=== PATIENT | female | born 1950 | race Two or more races ===

== ENCOUNTER → 2017-02-07 | Outpatient (CLI) | payer OTHER ==
[~2017-02-07] MED LIST: ENALAPRIL MALEA10 MG NGT; JANUVIA100 MG PO; MOTRIN800 MG PO; NABUMETONE500 MG PO; PERCOCET 5/3251 TAB PO
== END | disposition home or self-care (01) ==
LOC: LAB 10:55
DX: R05 Cough (principal); R50.9 Fever, unspecified

== ENCOUNTER → 2017-02-07 | Outpatient (CLI) | payer OTHER | END | disposition home or self-care (01) | LOC: RAD 10:58 | DX: R05 Cough (principal) ==

== ENCOUNTER 2017-02-22 07:33 | Outpatient (CLI) | payer OTHER | END 2017-02-22 07:48 | disposition home or self-care (01) | LOC: NUCLEAR 07:33 | DX: K82.9 Disease of gallbladder, unspecified (principal); R10.11 Right upper quadrant pain | CPT/HCPCS: 78227; A9537; J2805 ==

== ENCOUNTER 2017-03-10 08:01 | Outpatient (CLI) | payer OTHER | END 2017-03-10 08:19 | disposition home or self-care (01) | LOC: SONOGRAMA 08:01 → MAMO-SONO 08:45 | DX: K80.20 Calculus of gallbladder without cholecystitis without obstruction (principal) ==

== ENCOUNTER 2017-03-20 10:20 | Outpatient (CLI) | payer OTHER | END 2017-03-20 10:34 | disposition home or self-care (01) | LOC: LAB 10:20 | DX: I10 Essential (primary) hypertension (principal); E78.4 Other hyperlipidemia ==

== ENCOUNTER 2017-05-23 05:35 | Inpatient (IN) | payer OTHER ==
[~2017-05-23 05:35] MED LIST changes: +ASPIR 8181 MG PO
== END 2017-05-27 12:41 | disposition home or self-care (01) | DRG 416 ==
LOC: CIR.AMB 05:35 → O/R 15:31 → SURG 15:57
PROVIDERS: Surgery
PROC: 0FJ44ZZ Inspection of Gallbladder, Percutaneous Endoscopic Approach (ICD-10-PCS; 2017-05-23)
PROC: 0FT40ZZ Resection of Gallbladder, Open Approach (ICD-10-PCS; principal; 2017-05-23 07:00)
DX: K80.10 Calculus of gallbladder with chronic cholecystitis without obstruction (principal); E66.8 Other obesity; I10 Essential (primary) hypertension; E11.9 Type 2 diabetes mellitus without complications; R50.82 Postprocedural fever

== ENCOUNTER → 2017-06-13 | Emergency (ER) | payer OTHER ==
[~2017-06-13] VITALS: Ht 147.3 cm; Wt 100.7 kg
[~2017-06-13] MED LIST changes: +JANUMET 50-1,01 EACH
== END | disposition home or self-care (01) ==
LOC: ER 13:28
DX: T81.4XXA Infection following a procedure, initial encounter (principal); B99.9 Unspecified infectious disease; E11.9 Type 2 diabetes mellitus without complications; E66.8 Other obesity

== ENCOUNTER 2017-07-20 12:19 | Outpatient (CLI) | payer OTHER | END 2017-07-20 12:21 | disposition home or self-care (01) | LOC: LAB 12:19 | DX: I10 Essential (primary) hypertension (principal) ==

== ENCOUNTER → 2017-08-02 | Outpatient (CLI) | payer OTHER | END | disposition home or self-care (01) | LOC: TOM 09:53 | DX: R51 Headache (principal) ==

== ENCOUNTER → 2017-09-04 07:37 | Outpatient (CLI) | payer OTHER | END | disposition home or self-care (01) | LOC: LAB 07:37 | DX: Z76.0 Encounter for issue of repeat prescription (principal); I10 Essential (primary) hypertension; E11.9 Type 2 diabetes mellitus without complications ==

== ENCOUNTER → 2017-09-29 | Outpatient (CLI) | payer OTHER | END | disposition home or self-care (01) | LOC: SONOGRAMA 13:01 | DX: N95.0 Postmenopausal bleeding (principal) ==

== ENCOUNTER → 2017-10-18 10:25 | Outpatient (CLI) | payer OTHER | END | disposition home or self-care (01) | LOC: LAB 10:25 | DX: D50.8 Other iron deficiency anemias (principal); E83.51 Hypocalcemia; Z13.1 Encounter for screening for diabetes mellitus; E78.2 Mixed hyperlipidemia; E03.8 Other specified hypothyroidism; N39.0 Urinary tract infection, site not specified; D68.8 Other specified coagulation defects; Z13.6 Encounter for screening for cardiovascular disorders; N83.209 Unspecified ovarian cyst, unspecified side ==

== ENCOUNTER 2017-11-01 06:47 | Outpatient (CLI) | payer OTHER | END 2017-11-01 06:59 | disposition home or self-care (01) | LOC: LAB 06:47 | DX: I12.9 Hypertensive chronic kidney disease with stage 1 through stage 4 chronic kidney disease, or unspecified chronic kidney disease (principal) ==

== ENCOUNTER 2017-11-01 07:32 | Outpatient (CLI) | payer OTHER | END 2017-11-01 07:47 | disposition home or self-care (01) | LOC: SONOGRAMA 07:32 | DX: N18.1 Chronic kidney disease, stage 1 (principal); I12.9 Hypertensive chronic kidney disease with stage 1 through stage 4 chronic kidney disease, or unspecified chronic kidney disease ==

== ENCOUNTER 2018-01-31 06:41 | Outpatient (CLI) | payer OTHER | END 2018-01-31 07:03 | disposition home or self-care (01) | LOC: LAB 06:41 | DX: E08.00 Diabetes mellitus due to underlying condition with hyperosmolarity without nonketotic hyperglycemic-hyperosmolar coma (NKHHC) (principal); I10 Essential (primary) hypertension ==

== ENCOUNTER 2018-02-09 08:00 | Outpatient (CLI) | payer OTHER | END 2018-02-09 08:26 | disposition home or self-care (01) | LOC: LAB 08:00 | DX: I12.9 Hypertensive chronic kidney disease with stage 1 through stage 4 chronic kidney disease, or unspecified chronic kidney disease (principal); N39.0 Urinary tract infection, site not specified ==

== ENCOUNTER 2018-06-09 08:51 | Outpatient (CLI) | payer OTHER | END 2018-06-09 09:02 | disposition home or self-care (01) | LOC: LAB 08:51 | DX: I20.1 Angina pectoris with documented spasm (principal); I10 Essential (primary) hypertension ==

== ENCOUNTER 2018-06-20 10:12 | Outpatient (CLI) | payer OTHER | END 2018-06-20 17:00 | disposition home or self-care (01) | LOC: MRI 10:12 | DX: M54.5 Low back pain (principal); E11.00 Type 2 diabetes mellitus with hyperosmolarity without nonketotic hyperglycemic-hyperosmolar coma (NKHHC) | CPT/HCPCS: 72148 ==

== ENCOUNTER 2018-07-25 08:02 | Outpatient (CLI) | payer OTHER | END 2018-07-25 08:11 | disposition home or self-care (01) | LOC: LAB 08:02 | DX: N83.201 Unspecified ovarian cyst, right side (principal) ==

== ENCOUNTER 2018-07-25 09:05 | Outpatient (CLI) | payer OTHER | END 2018-07-25 09:22 | disposition home or self-care (01) | LOC: MAMO-SONO 09:05 | DX: N84.0 Polyp of corpus uteri (principal); Z12.31 Encounter for screening mammogram for malignant neoplasm of breast ==

== ENCOUNTER 2018-08-28 08:41 | Outpatient (CLI) | payer OTHER | END 2018-08-28 08:48 | disposition home or self-care (01) | LOC: RAD 08:41 | DX: G89.11 Acute pain due to trauma (principal); R07.89 Other chest pain; T79.9XXA Unspecified early complication of trauma, initial encounter ==

== ENCOUNTER 2018-10-09 09:55 | Outpatient (CLI) | payer OTHER | END 2018-10-09 10:05 | disposition home or self-care (01) | LOC: LAB 09:55 | DX: G89.11 Acute pain due to trauma (principal); I10 Essential (primary) hypertension; E08.9 Diabetes mellitus due to underlying condition without complications ==

== ENCOUNTER 2018-10-10 10:23 | Outpatient (CLI) | payer OTHER | END 2018-10-10 10:31 | disposition home or self-care (01) | LOC: LAB 10:23 | DX: G89.11 Acute pain due to trauma (principal); I10 Essential (primary) hypertension; E08.69 Diabetes mellitus due to underlying condition with other specified complication ==

== ENCOUNTER 2019-03-19 11:05 | Outpatient (CLI) | payer OTHER | END 2019-03-19 11:11 | disposition home or self-care (01) | LOC: TOM 11:05 | DX: M79.622 Pain in left upper arm (principal); M25.512 Pain in left shoulder ==

== ENCOUNTER 2020-09-30 07:29 | Outpatient (CLI) | payer OTHER | END 2020-09-30 13:54 | disposition home or self-care (01) | LOC: TOM 07:29 | PROVIDERS: ATTEND Specialist | DX: R10.84 Generalized abdominal pain (principal); R19.5 Other fecal abnormalities; Z12.31 Encounter for screening mammogram for malignant neoplasm of breast; E08.9 Diabetes mellitus due to underlying condition without complications; N64.59 Other signs and symptoms in breast ==

== ENCOUNTER 2020-11-05 08:33 | Outpatient (CLI) | payer OTHER | END 2020-11-05 08:42 | disposition home or self-care (01) | LOC: SONOGRAMA 08:33 → MAMO-SONO 11-12 07:45 | PROVIDERS: ATTEND Internal Medicine Gastroenterology | DX: K76.0 Fatty (change of) liver, not elsewhere classified (principal); R10.84 Generalized abdominal pain ==

== ENCOUNTER 2021-07-17 10:13 | Emergency (ER) | payer OTHER ==
[~2021-07-17] VITALS: Ht 157.5 cm; Wt 108.0 kg
== END 2021-07-17 15:36 ==
LOC: ER 10:13
DX: U07.1 COVID-19 (principal); D69.6 Thrombocytopenia, unspecified; E11.9 Type 2 diabetes mellitus without complications; I10 Essential (primary) hypertension

== ENCOUNTER 2021-07-20 10:29 | Outpatient (CLI) | payer OTHER | END 2021-07-20 10:30 | disposition home or self-care (01) | LOC: LAB 10:29 | PROVIDERS: ATTEND General Practice | DX: D69.6 Thrombocytopenia, unspecified (principal) ==

== ENCOUNTER 2021-10-05 07:47 | Outpatient (CLI) | payer OTHER | END 2021-10-05 07:58 | disposition home or self-care (01) | LOC: MRI 07:47 | PROVIDERS: ATTEND Specialist | DX: M25.512 Pain in left shoulder (principal) | CPT/HCPCS: 73221 ==

== ENCOUNTER → 2021-12-28 | Outpatient (CLI) | payer OTHER | END | disposition home or self-care (01) | LOC: NUCLEAR 09:21 | PROVIDERS: ATTEND Specialist | DX: I10 Essential (primary) hypertension (principal); E08.9 Diabetes mellitus due to underlying condition without complications; R60.0 Localized edema ==

== ENCOUNTER 2021-12-29 08:57 | Outpatient (CLI) | payer OTHER | END 2021-12-29 08:58 | disposition home or self-care (01) | LOC: NUCLEAR 08:57 | PROVIDERS: ATTEND Specialist | DX: I73.9 Peripheral vascular disease, unspecified (principal); R60.0 Localized edema; E08.9 Diabetes mellitus due to underlying condition without complications; I10 Essential (primary) hypertension ==

== ENCOUNTER → 2022-07-19 07:09 | Outpatient (CLI) | payer OTHER | END | disposition home or self-care (01) | LOC: LAB 07:09 | PROVIDERS: ATTEND Specialist | DX: E08.319 Diabetes mellitus due to underlying condition with unspecified diabetic retinopathy without macular edema (principal); I10 Essential (primary) hypertension; Z12.11 Encounter for screening for malignant neoplasm of colon ==

== ENCOUNTER 2022-07-19 07:54 | Outpatient (CLI) | payer OTHER | END 2022-07-19 08:15 | disposition home or self-care (01) | LOC: MAMO-SONO 07:54 | PROVIDERS: ATTEND Specialist | DX: Z12.31 Encounter for screening mammogram for malignant neoplasm of breast (principal) ==

== ENCOUNTER 2022-07-21 09:05 | Outpatient (CLI) | payer OTHER | END 2022-07-21 09:07 | disposition home or self-care (01) | LOC: LAB 09:05 | PROVIDERS: ATTEND Specialist | DX: E08.319 Diabetes mellitus due to underlying condition with unspecified diabetic retinopathy without macular edema (principal); I10 Essential (primary) hypertension; Z12.11 Encounter for screening for malignant neoplasm of colon ==

== ENCOUNTER 2022-07-26 12:10 | Outpatient (CLI) | payer OTHER | END 2022-07-26 12:14 | disposition home or self-care (01) | LOC: LAB 12:10 | PROVIDERS: ATTEND Specialist | DX: Z12.11 Encounter for screening for malignant neoplasm of colon (principal) ==

== ENCOUNTER 2022-08-30 07:47 | Outpatient (CLI) | payer OTHER | END 2022-08-30 07:50 | disposition home or self-care (01) | LOC: NUCLEAR 07:47 | PROVIDERS: ATTEND Specialist | DX: I73.9 Peripheral vascular disease, unspecified (principal); Z12.31 Encounter for screening mammogram for malignant neoplasm of breast; Z12.11 Encounter for screening for malignant neoplasm of colon; E08.319 Diabetes mellitus due to underlying condition with unspecified diabetic retinopathy without macular edema; I10 Essential (primary) hypertension; E66.9 Obesity, unspecified ==

== ENCOUNTER → 2022-08-31 07:40 | Outpatient (CLI) | payer OTHER | END | disposition home or self-care (01) | LOC: NUCLEAR 07:40 | PROVIDERS: ATTEND Specialist | DX: I73.9 Peripheral vascular disease, unspecified (principal); E08.319 Diabetes mellitus due to underlying condition with unspecified diabetic retinopathy without macular edema; I10 Essential (primary) hypertension; Z12.11 Encounter for screening for malignant neoplasm of colon; Z12.31 Encounter for screening mammogram for malignant neoplasm of breast; E66.9 Obesity, unspecified ==

== ENCOUNTER 2022-12-18 10:01 | Emergency (ER) | payer OTHER ==
[~2022-12-18] VITALS: Ht 170.2 cm; Wt 106.1 kg
[2022-12-18] MEDS ORDERED: LOSARTAN POTASS50 MG PO (11:42)
== END 2022-12-18 13:05 | disposition home or self-care (01) ==
LOC: ER 10:01
DX: F41.9 Anxiety disorder, unspecified (principal); I10 Essential (primary) hypertension; E11.9 Type 2 diabetes mellitus without complications

== ENCOUNTER 2023-12-15 08:41 | Outpatient (CLI) | payer OTHER ==
[~2023-12-15 08:41] MED LIST changes: +LOSARTAN POTASS50 MG PO
== END 2023-12-15 08:42 | disposition home or self-care (01) ==
LOC: NUCLEAR 08:41
DX: M79.672 Pain in left foot (principal); M79.662 Pain in left lower leg; E66.9 Obesity, unspecified; E11.8 Type 2 diabetes mellitus with unspecified complications; I10 Essential (primary) hypertension; I87.2 Venous insufficiency (chronic) (peripheral)

== ENCOUNTER → 2023-12-27 08:46 | Outpatient (CLI) | payer OTHER | END | disposition home or self-care (01) | LOC: NUCLEAR 08:00 | PROVIDERS: ATTEND General Practice | DX: M79.662 Pain in left lower leg (principal); M79.672 Pain in left foot; I10 Essential (primary) hypertension; E11.8 Type 2 diabetes mellitus with unspecified complications; E66.9 Obesity, unspecified ==

== ENCOUNTER 2024-01-18 07:23 | Outpatient (CLI) | payer OTHER | END 2024-01-18 07:43 | disposition home or self-care (01) | LOC: MRI 07:23 | PROVIDERS: ATTEND General Practice | DX: I87.2 Venous insufficiency (chronic) (peripheral) (principal); I73.9 Peripheral vascular disease, unspecified; E11.8 Type 2 diabetes mellitus with unspecified complications; R41.9 Unspecified symptoms and signs involving cognitive functions and awareness; R41.3 Other amnesia; R42 Dizziness and giddiness | CPT/HCPCS: 70553 ==

== ENCOUNTER 2024-02-15 14:00 | Outpatient (CLI) | payer OTHER | END 2024-02-15 14:18 | disposition home or self-care (01) | LOC: RAD 14:00 | PROVIDERS: ATTEND Specialist | DX: G89.11 Acute pain due to trauma (principal); A49.3 Mycoplasma infection, unspecified site ==

== ENCOUNTER 2024-05-14 13:33 | Outpatient (CLI) | payer OTHER | END 2024-05-14 13:47 | disposition home or self-care (01) | LOC: MRI 13:33 | PROVIDERS: ATTEND General Practice | DX: M50.30 Other cervical disc degeneration, unspecified cervical region (principal); M54.50 Low back pain, unspecified; M48.02 Spinal stenosis, cervical region; I69.811 Memory deficit following other cerebrovascular disease | CPT/HCPCS: 72141 ==

== ENCOUNTER 2024-05-30 08:06 | Outpatient (CLI) | payer OTHER | END 2024-05-30 08:18 | disposition home or self-care (01) | LOC: LAB 08:06 | PROVIDERS: ATTEND General Practice | DX: E11.9 Type 2 diabetes mellitus without complications (principal); I10 Essential (primary) hypertension ==

== ENCOUNTER 2024-05-30 09:18 | Outpatient (CLI) | payer OTHER | END 2024-05-30 09:40 | disposition home or self-care (01) | LOC: TOM 09:18 | PROVIDERS: ATTEND General Practice | DX: K86.2 Cyst of pancreas (principal); D13.6 Benign neoplasm of pancreas ==